=== PATIENT | female | born 1990 | race Caucasian/White ===

== ENCOUNTER 2018-07-19 12:14 | Emergency (ER) | payer OTHER, SELFPAY ==
[2018-07-19 12:15] VITALS: BP 124/83; PULSE 65; RESP 17; TEMP 36.3; O2SAT 98; BMI 25.6
--- NOTE | 2018-07-19 12:21 | CT_ITS ---
STUDY: CT ABDOMEN AND PELVIS WITHOUT CONTRAST REASON FOR EXAM: Female, 28 years old. Kidney stone in right lower quadrant pain RADIATION DOSAGE (If Supplied By Facility): CTDIvol = ( 6.23 ) mGy, DLP = ( 297.26 ) mGycm TECHNIQUE: Transaxial images were obtained from the dome of the diaphragm to the symphysis pubis without oral contrast, and without intravenous contrast. Sagittal and coronal images were reconstructed. Individualized dose optimization techniques were used for this CT. COMPARISON: None. FINDINGS: The visualized lung bases are unremarkable. The visualized portions of the heart are within normal limits. Normal liver. Normal gallbladder and extrahepatic biliary system. Normal spleen. Normal pancreas. Normal bilateral adrenal glands. Mild right hydroureteronephrosis. No underlying obstructing ureter stone is seen. 2 mm nonobstructing right renal stone. Normal left kidney. Normal visualized stomach. Normal small intestine. Normal colon. The appendix is visualized and appears normal. Normal abdominal aorta. Normal inferior vena cava. Normal retroperitoneum. Normal urinary bladder. Mild free pelvic fluid. Normal abdominal wall. Normal osseous structures. CT/Abdomen/Pelvis without Cont IMPRESSION: Mild right hydroureteronephrosis. No underlying obstructing ureter stone is seen. Changes could be related to a previously passed stone. Mild free pelvic fluid. No evidence of appendicitis or acute intestinal pathology. Electronically Signed: Romulo Mancilla MD at 14:15 EST Tel , Service support ,
--- NOTE | 2018-07-19 12:24 | ED.VISSUMM ---
- ER Visit Summary Date of Service: 07/19/18 Chief Complaint: Right lower quadrant pain History of Present Illness: The patient is a 28 F presents to the emergency department pain in the lower abdomen. Patient states she woke her normal state of health. She states that she ate her breakfast. She states that she went to urinate move her bowels. She states after urinating, she got a sharp stabbing pain in her right lower quadrant. She states that she thought that it was just a muscle spasm. She try to do some stretching, but the pain did not go away. She states the pain will decrease but then come back. It is never fully gone away. She states with one bout of the pain, she did get nauseated and vomited twice. She is never had pain like this before. She has no history of abdominal surgery. She denies any dysuria. She denies any change in bowel habits. Physical Examination: Vital signs reviewed General: Well-nourished, well-developed Head: Normocephalic, atraumatic Eyes: Pupils equal and reactive, extraocular muscles intact Neck, supple, no lymphadenopathy Heart: Regular rate and rhythm Respiratory: No distress, clear bilaterally Abdomen: Soft, nontender, nondistended, no peritoneal signs Back: Nontender Extremities: Nontender, no edema, no cords Skin: Normal color no rash Neuro: Alert and oriented, no focal or lateralizing deficits Test Results: [] Emergency Department Course and Treatment: Clinically, the patient's symptoms do seem most consistent with kidney stone. She has colicky pain. She was uncomfortable. I cannot re-create it on exam. Patient was given IV fluids, Toradol, Zofran, and morphine. She did have short increase of her pain, then total resolution. Her urine does show evidence of blood but no infection. CT shows stones within both kidneys, and she does have some mild hydro-of the ureter on the right, but there is no definitive obstruction. This does seem like she had a recently passed stone. On reevaluation she is still pain-free. I do feel the patient is safe for outpatient therapy. She was counseled on concerning symptoms and reasons to return. The patient is active duty in the [employer] and will be going back to [place] shortly. I am going to give her a copy of her lab work and CT along with report. She will be given local urology follow-up if needed if she stays in the area, but I did addictions counselor assistant her to follow-up through medical in the [place]. She is comfortable with this plan of care. Treatment Plan: [] Disposition: Discharge Impression: Right urolithiasis This note was generated with [employer] dictation software. It may contain incorrect words, spelling, and punctuation that were not noted in review of the chart prior to signing ED Disposition - Plan for ED Patient: Chief Complaint: Abd Pain Instructions: ED Stone Renal W Colic Prescriptions: Hydrocodone Bitart/Apap 5-325 [[place] 5MG-325MG] 1 tab PO Q6H PRN PRN 2 Days #6 tab PRN Reason: Pain Ondansetron [Zofran Odt] 4 mg PO Q8H PRN PRN #10 tab PRN Reason: Nausea Ibuprofen [Motrin] 800 mg PO TID PRN PRN #20 tab PRN Reason: Pain Referrals: Manuel Sandoval MD [STAFF PHYSICIAN] -
[2018-07-19] MEDS: Morphine 4 MG/ML Syringe IV (12:51)
[2018-07-19] MEDS: 0.9% Normal Saline 1,000 ML 250 ML IV (12:51)
[2018-07-19] MEDS: Ondansetron 4 MG/2 ML Vial IV (12:51)
[2018-07-19] MEDS: Ketorolac 30 MG/ML Syringe IV (12:54)
[2018-07-19 13:12] LABS: Bacteria 0 SEEN /hpf (None Seen); Mucous, Urine 0 SEEN /hpf (<or=2+); White Blood Cells 0 SEEN /hpf (0-5)
[2018-07-19 13:18] LABS: Color, Urine Yellow (Yellow); Glucose, Dipstick Normal (Normal); Ketone-Dipstick Negative (Negative); Leukocyte Esterase-Dipstick 25 /ul (Negative); Nitrite-Dipstick Negative (Negative); Occult Blood-Urine 250 /ul (Negative); Protein-Dipstick Negative (Negative); Urine Bilirubin Dipstick Negative (Negative); Urine Clarity Sl. Cloudy (Clear); Urine Urobilinogen Normal (Normal)
[2018-07-19 13:19] LABS: Absolute Lymphocyte Count 1.96 X10^3/ul (0.83-4.51); Absolute Neutrophil Count 9.1 X10^3/uL (2.0-7.7); Basophil# 0.02 X10^3/uL; Basophil% 0.2 % (0-1); Eosinophil# 0.08 X10^3/uL; Eosinophils% 0.7 % (0-5); Hematocrit 38.7 % (37-47); Hemoglobin 12.5 g/dl (12.0-15.0); Lymphocyte # 1.96 X10^3/ul (4.0); Lymphocyte % 16.9 % (19-41); Mean Corp Hgb Conc 32.3 g/gl (32-36); Mean Corpuscular Hgb 29.3 pg (27.0-32.0); Mean Corpuscular Volume 90.8 fL (81-99); Mean Platelet Vol. 10.2 fl (6.2-12.0); Monocyte# 0.47 X10^3/uL; Neutrophil # 9.07 X10^3/uL (2.7-7.7); Neutrophil % 77.9 % (47-70); POSITIVE COUNT NO; POSITIVE DIFFERENTIAL NO; POSITIVE MORPHOLOGY NO; Platelet Count 245 K/mm3 (150-450); RBC Distribution Width CV 13.4 % (11.6-14.6); Red Blood Count 4.26 M/mm3 (4.2-5.4); White Blood Count 11.6 K/mm3 (4.4-11.0)
[2018-07-19 13:24] LABS: Red Blood Cells-Urine 0-5 SEEN /hpf (0-5); Squamous Epithelial Cells - UA 0-5 SEEN /hpf (5-10)
[2018-07-19 13:28] LABS: Anion Gap 10 (5-15); BUN 25 mg/dL (7-18); BUN/Creat Ratio 21.7 RATIO (10-20); Calcium,Total 8.8 mg/dL (8.5-10.1); Chloride 104 mmol/L (98-107); Creatinine, Serum 1.15 mg/dL (0.55-1.02); EST Glomerular Filtration Rate 59 mL/min (>60); Est Glom Filt Rate - Afr Amer 72 mL/min (>60); Estimated Creatinine Clearance 62.33 ml/min; Glucose 116 mg/dL (74-106); Sodium Level 137 mmol/L (136-145)
[2018-07-19 13:40] LABS: Pregnancy, Serum, hCG Quali. NEGATIVE Negative (0-9 Nonpreg)
[2018-07-19 15:00] VITALS: BP 122/65; PULSE 66; RESP 17
== END 2018-07-19 15:03 | disposition home or self-care (01) ==
LOC: ED 12:37
PROVIDERS: Emergency Provider Emergency Medicine
DX: N13.2 Hydronephrosis with renal and ureteral calculous obstruction (principal)
CPT/HCPCS: 74176; 80048; 81001; 84703; 85025; 96361; 96374; 96375; 99283; J7030; J2405